=== PATIENT | female | born 1975 | race American Indian/Alaskan Native ===

== ENCOUNTER 2016-06-06 02:16 | Emergency (ER) | payer SELFPAY ==
[2016-06-06] MEDS ORDERED: CATAPRES ONE (02:42)
[2016-06-06] MEDS ORDERED: CATAPRES PO ONE (02:47)
[2016-06-06] MEDS ORDERED: XYLOCAINE 2% INFILTRATI ONE (08:28)
--- NOTE | 2016-06-06 08:57 | Emergency Department Report ---
ED General Adult HPI - General Chief complaint: Skin/Abscess/Foreign Body Stated complaint: FEVER, POSS INFECTION RT THUMB Time Seen by Provider: 06/06/16 08:16 Source: patient Mode of arrival: Ambulatory Limitations: No Limitations - History of Present Illness Initial comments: 40 -year-old female presents to the ED with swelling and pain and throbbing to the right distal thumb. It states that it started this weekend and progressively got more swollen last night. States there is a white discoloration. Denies pus drainage. Denies fever. Severity scale (0 -10): 10 - Related Data Home Medications Medication Instructions Recorded Confirmed Last Taken Amlodipine/Valsartan/Hcthiazid 1 tab PO DAILY 08/05/14 08/05/14 Unknown [Exforge Hct 5-160-12.5 mg Tab] Esomeprazole Magnesium [NexIUM] 40 mg PO DAILY 08/05/14 08/05/14 Unknown Insulin Glargine [Lantus] 52 units SQ QHS 08/05/14 08/05/14 Unknown Insulin Glulisine (Sliding) 0 units SQ TID 08/05/14 08/05/14 Unknown [Apidra (Sliding Scale)] Rosuvastatin (Nf) [Crestor] 5 mg PO QHS 08/05/14 08/05/14 Unknown Previous Rx's Medication Instructions Recorded Last Taken Type Cephalexin [Keflex] 500 mg PO Q6H #28 capsule 08/20/14 Unknown Rx HYDROcodone/APAP 5-325 [[place] 2 each PO Q4H PRN #30 tablet 08/20/14 Unknown Rx 5-325 mg TAB] Sulfamethoxazole/Trimethoprim 1 each PO BID #14 tablet 06/06/16 Unknown Rx [Bactrim DS TAB] traMADol [Ultram 50 MG tab] 50 mg PO Q6HR PRN #14 tablet 06/06/16 Unknown Rx Allergies Allergy/AdvReac Type Severity Reaction Status Date / Time insulin lispro [From Humalog] Allergy Rash Verified 08/09/14 14:17 ED Review of Systems ROS: Stated complaint: FEVER, POSS INFECTION RT THUMB Other details as noted in HPI Constitutional: denies: chills, fever Eyes: denies: eye pain, eye discharge, vision change ENT: denies: ear pain, throat pain Respiratory: denies: cough, shortness of breath, wheezing Cardiovascular: denies: chest pain, palpitations Endocrine: no symptoms reported Gastrointestinal: denies: abdominal pain, nausea, diarrhea Genitourinary: denies: urgency, dysuria, discharge Musculoskeletal: arthralgia. denies: back pain, joint swelling Skin: denies: rash, lesions Neurological: denies: headache, weakness, paresthesias Psychiatric: denies: anxiety, depression Hematological/Lymphatic: denies: easy bleeding, easy bruising ED Past Medical Hx - Past Medical History Previous Medical History?: Yes Hx Hypertension: Yes Hx Congestive Heart Failure: No Hx Diabetes: Yes Hx Deep Vein Thrombosis: (Unk) Hx Sickle Cell Disease: No Hx Seizures: No Hx Psychiatric Treatment: No Hx Asthma: No Hx COPD: No Hx HIV: No - Surgical History Past Surgical History?: Yes Hx Pacemaker: No Hx Internal Defibrillator: No Additional Surgical History: Breast reduction, right upper extremity surgery - Social History Smoking Status: Never Smoker Substance Use Type: None - Medications Home Medications: Home Medications Medication Instructions Recorded Confirmed Last Taken Type Amlodipine/Valsartan/Hcthiazid 1 tab PO DAILY 08/05/14 08/05/14 Unknown History [Exforge Hct 5-160-12.5 mg Tab] Esomeprazole Magnesium [NexIUM] 40 mg PO DAILY 08/05/14 08/05/14 Unknown History Insulin Glargine [Lantus] 52 units SQ QHS 08/05/14 08/05/14 Unknown History Insulin Glulisine (Sliding) 0 units SQ TID 08/05/14 08/05/14 Unknown History [Apidra (Sliding Scale)] Rosuvastatin (Nf) [Crestor] 5 mg PO QHS 08/05/14 08/05/14 Unknown History Cephalexin [Keflex] 500 mg PO Q6H #28 capsule 08/20/14 Unknown Rx HYDROcodone/APAP 5-325 [[place] 2 each PO Q4H PRN #30 tablet 08/20/14 Unknown Rx 5-325 mg TAB] Sulfamethoxazole/Trimethoprim 1 each PO BID #14 tablet 06/06/16 Unknown Rx [Bactrim DS TAB] traMADol [Ultram 50 MG tab] 50 mg PO Q6HR PRN #14 tablet 06/06/16 Unknown Rx ED Physical Exam - General Limitations: No Limitations General appearance: alert, in no apparent distress - Head Head exam: Present: atraumatic, normocephalic - Eye Eye exam: Present: normal appearance - ENT ENT exam: Present: mucous membranes moist - Neck Neck exam: Present: normal inspection - Respiratory Respiratory exam: Present: normal lung sounds bilaterally. Absent: respiratory distress - Cardiovascular Cardiovascular Exam: Present: regular rate, normal rhythm. Absent: systolic murmur, diastolic murmur, rubs, gallop - GI/Abdominal GI/Abdominal exam: Present: soft, normal bowel sounds - Extremities Exam Extremities exam: Present: normal inspection, other (distal right thumb is swollen, erythematous, fluctuant. Full range of motion.) - Back Exam Back exam: Present: normal inspection - Neurological Exam Neurological exam: Present: alert, oriented X3 - Psychiatric Psychiatric exam: Present: normal affect, normal mood - Skin Skin exam: Present: warm, dry, intact, normal color. Absent: rash ED Course Vital Signs 06/06/16 06/06/16 06/06/16 02:23 02:32 02:48 Temperature 98.5 F 98.3 F Pulse Rate 107 H 107 H 107 H Respiratory 22 22 Rate Blood Pressure 198/135 198/135 Blood Pressure 198/135 [Right] O2 Sat by Pulse 100 100 Oximetry - Procedure Description Procedures done: Betadine used to cleanse the area. 2% lidocaine used for digital block of the right thumb. 8 mL used. Right thumb is completely numb. 11 blade used to make 1 cm incision. Copious purulent and bloody drainage was removed. Patient states significant relief. ED Medical Decision Making - Medical Decision Making Patient states feeling much better after incision and drainage. We'll start on Bactrim and tramadol. distress at this time. Critical care attestation.: If time is entered above; I have spent that time in minutes in the direct care of this critically ill patient, excluding procedure time. ED Disposition Clinical Impression: Paronychia of finger Disposition: DISCHARGED TO HOME OR SELFCARE Is pt being admited?: No Does the pt Need Aspirin: No Condition: Good Instructions: Paronychia (ED) Prescriptions: Sulfamethoxazole/Trimethoprim [Bactrim DS TAB] 1 each PO BID #14 tablet traMADol [Ultram 50 MG tab] 50 mg PO Q6HR PRN #14 tablet PRN Reason: Pain Referrals: PRIMARY CARE, [Primary Care Provider] - 3-5 Days Time of Disposition: 08:57
[2016-06-06 09:18] VITALS: BP 180/112
== END 2016-06-06 09:18 | disposition home or self-care (01) ==
LOC: ED 02:16
DX: L03.011 Cellulitis of right finger (principal); I10 Essential (primary) hypertension; E11.9 Type 2 diabetes mellitus without complications
CPT/HCPCS: 99282

== ENCOUNTER 2016-07-29 18:19 | Emergency (ER) | payer OTHER ==
[2016-07-29 21:23] LABS: Anion Gap 21 mmol/L; BUN/Creatinine Ratio 11.25; Basophils % (Auto) 0.5 % (0.0-1.8); Blood Urea Nitrogen 18 mg/dL (7-17); Calcium 9.4 mg/dL (8.4-10.2); Carbon Dioxide 24 mmol/L (22-30); Chloride 95.5 mmol/L (98-107); Eosinophils % (Auto) 0.3 % (0.0-4.3); Glucose 263 mg/dL (65-100); Hematocrit 41.2 % (30.3-42.9); Hemoglobin 13.1 gm/dl (10.1-14.3); Mean Corpuscular HGB Conc 32 % (30-34); Mean Corpuscular Hemoglobin 28 pg (28-32); Mean Corpuscular Volume 88 fl (79-97); Platelet Count 282 K/mm3 (140-440); Potassium 4.3 mmol/L (3.6-5.0); Red Blood Count 4.67 M/mm3 (3.65-5.03); Red Cell Distribution Width 15.8 % (13.2-15.2); Sodium 136 mmol/L (137-145)
--- NOTE | 2016-07-29 22:32 | Cat Scan Report ---
FINAL REPORT EXAM: CT HEAD/BRAIN WO CON HISTORY: blurry vision TECHNIQUE: CT imaging acquired through the head without intravenous contrast. Transaxial reformations are provided. PRIORS: None. FINDINGS: The ventricles, cisterns and sulci are normal. No intraparenchymal or extra-axial mass, hemorrhage, or mass effect. Matthews and white-matter differentiation is normal. Normal spherical shape of the globes. Paranasal sinuses and mastoid air cells are clear. No skull or facial fracture visualized. IMPRESSION: No acute intracranial abnormality. Consider additional imaging including MRI for worsening/persistent symptoms.
[2016-07-30 05:08] VITALS: BP 129/85
--- NOTE | 2016-07-30 05:49 | Emergency Department Report ---
HPI - General Chief Complaint: Allergic Reaction Time Seen by Provider: 07/30/16 05:42 ED Past Medical Hx - Past Medical History Hx Hypertension: Yes Hx Congestive Heart Failure: No Hx Diabetes: Yes Hx Deep Vein Thrombosis: (Unk) Hx Sickle Cell Disease: No Hx Seizures: No Hx Psychiatric Treatment: No Hx Asthma: No Hx COPD: No Hx HIV: No - Surgical History Hx Pacemaker: No Hx Internal Defibrillator: No Additional Surgical History: Breast reduction, right upper extremity surgery - Social History Smoking Status: Unknown if ever smoked - Medications Home Medications: Home Medications Medication Instructions Recorded Confirmed Last Taken Type Amlodipine/Valsartan/Hcthiazid 1 tab PO DAILY 08/05/14 08/05/14 Unknown History [Exforge Hct 5-160-12.5 mg Tab] Esomeprazole Magnesium [NexIUM] 40 mg PO DAILY 08/05/14 08/05/14 Unknown History Insulin Glargine [Lantus] 52 units SQ QHS 08/05/14 08/05/14 Unknown History Insulin Glulisine (Sliding) 0 units SQ TID 08/05/14 08/05/14 Unknown History [Apidra (Sliding Scale)] Rosuvastatin (Nf) [Crestor] 5 mg PO QHS 08/05/14 08/05/14 Unknown History Cephalexin [Keflex] 500 mg PO Q6H #28 capsule 08/20/14 Unknown Rx HYDROcodone/APAP 5-325 [[place] 2 each PO Q4H PRN #30 tablet 08/20/14 Unknown Rx 5-325 mg TAB] Sulfamethoxazole/Trimethoprim 1 each PO BID #14 tablet 06/06/16 Unknown Rx [Bactrim DS TAB] traMADol [Ultram 50 MG tab] 50 mg PO Q6HR PRN #14 tablet 06/06/16 Unknown Rx Famotidine [Pepcid] 20 mg PO BID #10 tablet 07/30/16 Unknown Rx diphenhydrAMINE [Benadryl CAP] 25 mg PO Q6HR #20 capsule 07/30/16 Unknown Rx predniSONE [Deltasone] 50 mg PO QDAY #5 tab 07/30/16 Unknown Rx ED Review of Systems ROS: Stated complaint: ALLERGIC REACTION TO MEDICATION Other details as noted in HPI Physical Exam - Physical Exam Vital Signs: Vital Signs 07/29/16 07/30/16 07/30/16 20:09 02:48 05:07 Temperature 98.4 F 98.2 F 98.6 F Pulse Rate 105 H 91 H 93 H Respiratory 16 18 20 Rate Blood Pressure 159/99 151/100 Blood Pressure 129/85 [Left] O2 Sat by Pulse 100 100 100 Oximetry 07/30/16 05:13 Temperature Pulse Rate Respiratory 20 Rate Blood Pressure Blood Pressure [Left] O2 Sat by Pulse 100 Oximetry ED Course Vital Signs 07/29/16 07/30/16 07/30/16 20:09 02:48 05:07 Temperature 98.4 F 98.2 F 98.6 F Pulse Rate 105 H 91 H 93 H Respiratory 16 18 20 Rate Blood Pressure 159/99 151/100 Blood Pressure 129/85 [Left] O2 Sat by Pulse 100 100 100 Oximetry 07/30/16 05:13 Temperature Pulse Rate Respiratory 20 Rate Blood Pressure Blood Pressure [Left] O2 Sat by Pulse 100 Oximetry ED Medical Decision Making - Lab Data Result diagrams: 07/29/16 20:47 07/29/16 20:47 - EKG Data -: EKG Interpreted by Me ([id number]) EKG shows normal: sinus rhythm, axis (normal), intervals (LPFB, Qtc:469ms), ST- T waves ((-)ST/T changes, no STEMI) - Medical Decision Making Results discussed with the patient. Pt has now been in the ED for approximately 12 hours, patient reports some perioral tingling, with no swelling, tongue swelling, dysarthria, difficulty swallowing, dyspnea, or pooling of secretions. Critical care attestation.: If time is entered above; I have spent that time in minutes in the direct care of this critically ill patient, excluding procedure time. ED Disposition Clinical Impression: Allergic reaction Disposition: DISCHARGED TO HOME OR SELFCARE Is pt being admited?: No Condition: Stable Instructions: Allergies (ED) Additional Instructions: Please stop taking the benicar and follow up with your PMD Prescriptions: diphenhydrAMINE [Benadryl CAP] 25 mg PO Q6HR #20 capsule Famotidine [Pepcid] 20 mg PO BID #10 tablet predniSONE [Deltasone] 50 mg PO QDAY #5 tab Referrals: WILLIAM TADEO MD [Primary Care Provider] - 3-5 Days
== END 2016-07-30 06:02 | disposition home or self-care (01) ==
LOC: ED 18:19
DX: T78.40XA Allergy, unspecified, initial encounter (principal); I10 Essential (primary) hypertension; E11.9 Type 2 diabetes mellitus without complications; Z79.4 Long term (current) use of insulin
CPT/HCPCS: 36415; 70450; 80048; 84484; 85025; 93005; 93010

== ENCOUNTER 2016-09-09 18:09 | Emergency (ER) | payer OTHER ==
[2016-09-09 23:47] VITALS: BP 195/118
[2016-09-10] MEDS ORDERED: MOTRIN PO ONE (01:05)
--- NOTE | 2016-09-10 01:06 | Emergency Department Report ---
ED Extremity Problem HPI - General Chief complaint: Extremity Problem,Nontraumatic Stated complaint: INFECTION IN LEFT THUMB Time Seen by Provider: 09/10/16 01:00 Source: patient Mode of arrival: Ambulatory Limitations: No Limitations - History of Present Illness Initial comments: Patient is a 41-year-old female with history of hypertension, diabetes, hidradenitis suppurativa presenting today because of pain, swelling and drainage of left thumb. Patient states that this started with pain and swelling 2 days ago. Started having spontaneous drainage upon arrival here to the emergency room. No fevers or chills. Had similar symptoms on the other hand in the past requiring procedure in the ER. Severity scale (0 -10): 0 - Related Data Home Medications Medication Instructions Recorded Confirmed Last Taken Amlodipine/Valsartan/Hcthiazid 1 tab PO DAILY 08/05/14 08/05/14 Unknown [Exforge Hct 5-160-12.5 mg Tab] Esomeprazole Magnesium [NexIUM] 40 mg PO DAILY 08/05/14 08/05/14 Unknown Insulin Glargine [Lantus] 52 units SQ QHS 08/05/14 08/05/14 Unknown Insulin Glulisine (Sliding) 0 units SQ TID 08/05/14 08/05/14 Unknown [Apidra (Sliding Scale)] Rosuvastatin (Nf) [Crestor] 5 mg PO QHS 08/05/14 08/05/14 Unknown Previous Rx's Medication Instructions Recorded Last Taken Type Cephalexin [Keflex] 500 mg PO Q6H #28 capsule 08/20/14 Unknown Rx HYDROcodone/APAP 5-325 [[place] 2 each PO Q4H PRN #30 tablet 08/20/14 Unknown Rx 5-325 mg TAB] Sulfamethoxazole/Trimethoprim 1 each PO BID #14 tablet 06/06/16 Unknown Rx [Bactrim DS TAB] traMADol [Ultram 50 MG tab] 50 mg PO Q6HR PRN #14 tablet 06/06/16 Unknown Rx Famotidine [Pepcid] 20 mg PO BID #10 tablet 07/30/16 Unknown Rx diphenhydrAMINE [Benadryl CAP] 25 mg PO Q6HR #20 capsule 07/30/16 Unknown Rx predniSONE [Deltasone] 50 mg PO QDAY #5 tab 07/30/16 Unknown Rx Ibuprofen [Motrin] 600 mg PO Q8H PRN #14 tablet 09/10/16 Unknown Rx Sulfamethoxazole/Trimethoprim 1 each PO BID #14 tablet 09/10/16 Unknown Rx [Bactrim DS TAB] Allergies Allergy/AdvReac Type Severity Reaction Status Date / Time insulin lispro [From Humalog] Allergy Rash Verified 08/09/14 14:17 gabapentin [From Neurontin] AdvReac Unknown Verified 09/09/16 18:33 ED Review of Systems ROS: Stated complaint: INFECTION IN LEFT THUMB Other details as noted in HPI Comment: All other systems reviewed and negative Constitutional: denies: fever ENT: denies: ear pain Respiratory: denies: cough Cardiovascular: denies: chest pain Gastrointestinal: denies: vomiting Genitourinary: denies: urgency Skin: denies: rash Neurological: denies: headache Psychiatric: denies: anxiety ED Past Medical Hx - Past Medical History Previous Medical History?: Yes Hx Hypertension: Yes Hx Congestive Heart Failure: No Hx Diabetes: Yes Hx Deep Vein Thrombosis: (Unk) Hx Sickle Cell Disease: No Hx Seizures: No Hx Psychiatric Treatment: No Hx Asthma: No Hx COPD: No Hx HIV: No - Surgical History Past Surgical History?: Yes Hx Pacemaker: No Hx Internal Defibrillator: No Additional Surgical History: Breast reduction, right upper extremity surgery, Back - Social History Smoking Status: Never Smoker Substance Use Type: None - Medications Home Medications: Home Medications Medication Instructions Recorded Confirmed Last Taken Type Amlodipine/Valsartan/Hcthiazid 1 tab PO DAILY 08/05/14 08/05/14 Unknown History [Exforge Hct 5-160-12.5 mg Tab] Esomeprazole Magnesium [NexIUM] 40 mg PO DAILY 08/05/14 08/05/14 Unknown History Insulin Glargine [Lantus] 52 units SQ QHS 08/05/14 08/05/14 Unknown History Insulin Glulisine (Sliding) 0 units SQ TID 08/05/14 08/05/14 Unknown History [Apidra (Sliding Scale)] Rosuvastatin (Nf) [Crestor] 5 mg PO QHS 08/05/14 08/05/14 Unknown History Cephalexin [Keflex] 500 mg PO Q6H #28 capsule 08/20/14 Unknown Rx HYDROcodone/APAP 5-325 [[place] 2 each PO Q4H PRN #30 tablet 08/20/14 Unknown Rx 5-325 mg TAB] Sulfamethoxazole/Trimethoprim 1 each PO BID #14 tablet 06/06/16 Unknown Rx [Bactrim DS TAB] traMADol [Ultram 50 MG tab] 50 mg PO Q6HR PRN #14 tablet 06/06/16 Unknown Rx Famotidine [Pepcid] 20 mg PO BID #10 tablet 07/30/16 Unknown Rx diphenhydrAMINE [Benadryl CAP] 25 mg PO Q6HR #20 capsule 07/30/16 Unknown Rx predniSONE [Deltasone] 50 mg PO QDAY #5 tab 07/30/16 Unknown Rx Ibuprofen [Motrin] 600 mg PO Q8H PRN #14 tablet 09/10/16 Unknown Rx Sulfamethoxazole/Trimethoprim 1 each PO BID #14 tablet 09/10/16 Unknown Rx [Bactrim DS TAB] ED Physical Exam - General Limitations: No Limitations General appearance: alert, in no apparent distress - Head Head exam: Present: atraumatic - Eye Eye exam: Present: normal appearance - Respiratory Respiratory exam: Present: normal lung sounds bilaterally. Absent: respiratory distress - Cardiovascular Cardiovascular Exam: Present: regular rate, normal rhythm - GI/Abdominal GI/Abdominal exam: Present: soft. Absent: tenderness - Extremities Exam Extremities exam: Present: other (left thumb on the radial aspect just proximal to the nail is a paronychia, no spontaneous drainage on exam there is some drainage dressing, sensation intact distally, capillary refill less than 2 seconds) - Neurological Exam Neurological exam: Present: altered, oriented X3 - Psychiatric Psychiatric exam: Present: normal affect - Skin Skin exam: Present: intact ED Course Vital Signs 09/09/16 09/09/16 18:28 23:46 Temperature 97.9 F Pulse Rate 100 H 91 H Respiratory 18 18 Rate Blood Pressure 202/118 Blood Pressure 195/118 [Left] O2 Sat by Pulse 100 99 Oximetry - I & D Left Distal Dorsal Finger Type of Procedure: Simple Site: left dorsal radial first digit paronychia Blade Size: 11 Progress: initially attempted to guera with 18g without anesthesia, unsuccessful, patient unable to tolerate. 8 mL of 2% lidocaine without epi was used for a digital block with good anesthetic results. A scalpel was used to make a small incision and moderate amount of pus and blood was removed from the site. ED Medical Decision Making - Medical Decision Making Paronychia Offered digital block versus no anesthesia with just a single lanced with an 18- gauge needle, patient prefers to do the 18-gauge needle. Motrin also ordered for the pain. I&D abx due to diabetes Critical care attestation.: If time is entered above; I have spent that time in minutes in the direct care of this critically ill patient, excluding procedure time. ED Disposition Clinical Impression: Paronychia of finger of left hand Disposition: DISCHARGED TO HOME OR SELFCARE Is pt being admited?: No Does the pt Need Aspirin: No Condition: Stable Instructions: Paronychia (ED) Additional Instructions: Please follow up with the primary care physician in the next 2-3 days. Return to the ER if your symptoms worsen or you develop new symptoms. Soak thumb in warm water to keep incision site open. Prescriptions: Ibuprofen [Motrin] 600 mg PO Q8H PRN #14 tablet PRN Reason: Pain Sulfamethoxazole/Trimethoprim [Bactrim DS TAB] 1 each PO BID #14 tablet Referrals: PRIMARY CARE, [Primary Care Provider] - 3-5 Days Time of Disposition: 02:30
[2016-09-10] MEDS ORDERED: XYLOCAINE 2% INFILTRATI ONE (01:37)
== END 2016-09-10 02:59 | disposition home or self-care (01) ==
LOC: ED 18:09
DX: L03.012 Cellulitis of left finger (principal); I10 Essential (primary) hypertension; E11.9 Type 2 diabetes mellitus without complications; Z79.4 Long term (current) use of insulin; Z88.8 Allergy status to other drugs, medicaments and biological substances

== ENCOUNTER 2016-11-28 09:19 | Emergency (ER) | payer OTHER ==
[2016-11-28 09:35] VITALS: BP 183/109
--- NOTE | 2016-11-28 10:02 | Emergency Department Report ---
ED General Adult HPI - General Chief complaint: Dental/Oral Stated complaint: RT EAR PAIN/DIZZY Time Seen by Provider: 11/28/16 09:43 Source: patient Mode of arrival: Ambulatory Limitations: No Limitations - History of Present Illness Initial comments: 41-year-old female presents to the ED complaining about right upper dental pain in the maxillary region, right ear pain, sore throat for about 2 days. States that there is no dental swelling or pus drainage. Denies injury. Denies fever , cough, chest pain, shortness of breath. -: Gradual, days(s) (2) Quality: aching Consistency: constant Improves with: none Worsens with: none Associated Symptoms: denies other symptoms - Related Data Home Medications Medication Instructions Recorded Confirmed Last Taken Amlodipine/Valsartan/Hcthiazid 1 tab PO DAILY 08/05/14 08/05/14 Unknown [Exforge Hct 5-160-12.5 mg Tab] Esomeprazole Magnesium [NexIUM] 40 mg PO DAILY 08/05/14 08/05/14 Unknown Insulin Glargine [Lantus] 52 units SQ QHS 08/05/14 08/05/14 Unknown Insulin Glulisine (Sliding) 0 units SQ TID 08/05/14 08/05/14 Unknown [Apidra (Sliding Scale)] Rosuvastatin (Nf) [Crestor] 5 mg PO QHS 08/05/14 08/05/14 Unknown Previous Rx's Medication Instructions Recorded Last Taken Type Cephalexin [Keflex] 500 mg PO Q6H #28 capsule 08/20/14 Unknown Rx HYDROcodone/APAP 5-325 [[place] 2 each PO Q4H PRN #30 tablet 08/20/14 Unknown Rx 5-325 mg TAB] Sulfamethoxazole/Trimethoprim 1 each PO BID #14 tablet 06/06/16 Unknown Rx [Bactrim DS TAB] traMADol [Ultram 50 MG tab] 50 mg PO Q6HR PRN #14 tablet 06/06/16 Unknown Rx Famotidine [Pepcid] 20 mg PO BID #10 tablet 07/30/16 Unknown Rx diphenhydrAMINE [Benadryl CAP] 25 mg PO Q6HR #20 capsule 07/30/16 Unknown Rx predniSONE [Deltasone] 50 mg PO QDAY #5 tab 07/30/16 Unknown Rx Ibuprofen [Motrin] 600 mg PO Q8H PRN #14 tablet 09/10/16 Unknown Rx Sulfamethoxazole/Trimethoprim 1 each PO BID #14 tablet 09/10/16 Unknown Rx [Bactrim DS TAB] Acetaminophen/Codeine [Tylenol 1 tab PO Q6H PRN #14 tab 11/28/16 Unknown Rx /Codeine # 3 tab] Penicillin Vk [Veetids TAB] 500 mg PO QID #56 tablet 11/28/16 Unknown Rx Allergies Allergy/AdvReac Type Severity Reaction Status Date / Time insulin lispro [From Humalog] Allergy Rash Verified 08/09/14 14:17 gabapentin [From Neurontin] AdvReac Unknown Verified 09/09/16 18:33 ED Review of Systems ROS: Stated complaint: RT EAR PAIN/DIZZY Other details as noted in HPI Constitutional: denies: chills, fever Eyes: denies: eye pain, eye discharge, vision change ENT: ear pain, throat pain, dental pain Respiratory: denies: cough, shortness of breath, wheezing Cardiovascular: denies: chest pain, palpitations Endocrine: no symptoms reported Gastrointestinal: denies: abdominal pain, nausea, diarrhea Genitourinary: denies: urgency, dysuria, discharge Musculoskeletal: denies: back pain, joint swelling, arthralgia Skin: denies: rash, lesions Neurological: denies: headache, weakness, paresthesias Psychiatric: denies: anxiety, depression Hematological/Lymphatic: denies: easy bleeding, easy bruising ED Past Medical Hx - Past Medical History Previous Medical History?: Yes Hx Hypertension: Yes Hx Congestive Heart Failure: No Hx Diabetes: Yes Hx Deep Vein Thrombosis: (Unk) Hx Sickle Cell Disease: No Hx Seizures: No Hx Psychiatric Treatment: No Hx Asthma: No Hx COPD: No Hx HIV: No - Surgical History Hx Pacemaker: No Hx Internal Defibrillator: No Additional Surgical History: Breast reduction, right upper extremity surgery, Back - Social History Smoking Status: Never Smoker Substance Use Type: None - Medications Home Medications: Home Medications Medication Instructions Recorded Confirmed Last Taken Type Amlodipine/Valsartan/Hcthiazid 1 tab PO DAILY 08/05/14 08/05/14 Unknown History [Exforge Hct 5-160-12.5 mg Tab] Esomeprazole Magnesium [NexIUM] 40 mg PO DAILY 08/05/14 08/05/14 Unknown History Insulin Glargine [Lantus] 52 units SQ QHS 08/05/14 08/05/14 Unknown History Insulin Glulisine (Sliding) 0 units SQ TID 08/05/14 08/05/14 Unknown History [Apidra (Sliding Scale)] Rosuvastatin (Nf) [Crestor] 5 mg PO QHS 08/05/14 08/05/14 Unknown History Cephalexin [Keflex] 500 mg PO Q6H #28 capsule 08/20/14 Unknown Rx HYDROcodone/APAP 5-325 [[place] 2 each PO Q4H PRN #30 tablet 08/20/14 Unknown Rx 5-325 mg TAB] Sulfamethoxazole/Trimethoprim 1 each PO BID #14 tablet 06/06/16 Unknown Rx [Bactrim DS TAB] traMADol [Ultram 50 MG tab] 50 mg PO Q6HR PRN #14 tablet 06/06/16 Unknown Rx Famotidine [Pepcid] 20 mg PO BID #10 tablet 07/30/16 Unknown Rx diphenhydrAMINE [Benadryl CAP] 25 mg PO Q6HR #20 capsule 07/30/16 Unknown Rx predniSONE [Deltasone] 50 mg PO QDAY #5 tab 07/30/16 Unknown Rx Ibuprofen [Motrin] 600 mg PO Q8H PRN #14 tablet 09/10/16 Unknown Rx Sulfamethoxazole/Trimethoprim 1 each PO BID #14 tablet 09/10/16 Unknown Rx [Bactrim DS TAB] Acetaminophen/Codeine [Tylenol 1 tab PO Q6H PRN #14 tab 11/28/16 Unknown Rx /Codeine # 3 tab] Penicillin Vk [Veetids TAB] 500 mg PO QID #56 tablet 11/28/16 Unknown Rx ED Physical Exam - General Limitations: No Limitations General appearance: alert, in no apparent distress - Head Head exam: Present: atraumatic, normocephalic - Eye Eye exam: Present: normal appearance, EOMI Pupils: Present: normal accommodation - ENT ENT exam: Present: normal orophraynx, mucous membranes moist, TM's normal bilaterally, normal external ear exam - Expanded ENT Exam Expanded Teeth exam: Present: dental caries, gingival enlargement Throat exam: Negative: tonsillar erythema, tonsillomegaly, tonsillar exudate, R peritonsillar mass, L peritonsillar mass - Neck Neck exam: Present: normal inspection. Absent: tenderness - Respiratory Respiratory exam: Present: normal lung sounds bilaterally. Absent: respiratory distress - Cardiovascular Cardiovascular Exam: Present: regular rate, normal rhythm. Absent: systolic murmur, diastolic murmur, rubs, gallop - GI/Abdominal GI/Abdominal exam: Present: soft, normal bowel sounds - Extremities Exam Extremities exam: Present: normal inspection - Back Exam Back exam: Present: normal inspection - Neurological Exam Neurological exam: Present: alert, oriented X3 - Psychiatric Psychiatric exam: Present: normal affect, normal mood - Skin Skin exam: Present: warm, dry, intact, normal color. Absent: rash ED Course Vital Signs 11/28/16 09:30 Temperature 98.8 F Pulse Rate 98 H Respiratory 20 Rate Blood Pressure 183/109 O2 Sat by Pulse 100 Oximetry ED Medical Decision Making - Medical Decision Making Patient is resting comfortably at this time. We'll start penicillin for dental infection. Critical care attestation.: If time is entered above; I have spent that time in minutes in the direct care of this critically ill patient, excluding procedure time. ED Disposition Clinical Impression: Infected dental caries, Acute pharyngitis Disposition: TO HOME OR SELFCARE Is pt being admited?: No Does the pt Need Aspirin: No Condition: Good Instructions: Dental Caries (ED) Prescriptions: Acetaminophen/Codeine [Tylenol /Codeine # 3 tab] 1 tab PO Q6H PRN #14 tab PRN Reason: Pain Penicillin Vk [Veetids TAB] 500 mg PO QID #56 tablet Referrals: PRIMARY CARE, [Primary Care Provider] - 3-5 Days [facility] [Outside] - 3-5 Days Forms: Work/School Release Form(ED) Time of Disposition: 10:01
== END 2016-11-28 10:17 | disposition home or self-care (01) ==
LOC: ED 09:19
DX: K04.7 Periapical abscess without sinus (principal); J02.9 Acute pharyngitis, unspecified; I10 Essential (primary) hypertension
CPT/HCPCS: 99281

== ENCOUNTER 2021-05-18 22:00 | Emergency (ER) | payer SELFPAY ==
[2021-05-19] MEDS ORDERED: ACETAMINOPHEN 325 MG TAB PO ONE (00:10)
[2021-05-19] MEDS ORDERED: LIDOCAINE-MPF (1%) 10 MG/1 ML VIAL 5 ML INFILTRATI ONE (00:18)
--- NOTE | 2021-05-19 00:22 | Emergency Department Report ---
- General Chief complaint: Skin/Abscess/Foreign Body Stated complaint: KEEP FALLEN Time Seen by Provider: 05/18/21 23:37 Source: patient Mode of arrival: Ambulatory Limitations: No Limitations - History of Present Illness Initial comments: patient reports she keeps falling and this has been going on for a week. she also states she has abscess under her left arm MD complaint: abscess/boil -: Gradual Location: LUE Severity: moderate Severity scale (0 -10): 3 Quality: aching Consistency: constant Treatments Prior to Arrival: none - Related Data Home Medications Medication Instructions Recorded Confirmed Last Taken Amlodipine/Valsartan/Hcthiazid 1 tab PO DAILY 08/05/14 08/05/14 Unknown [Exforge Hct 5-160-12.5 mg Tab] Esomeprazole Magnesium [NexIUM] 40 mg PO DAILY 08/05/14 08/05/14 Unknown Insulin Glargine [Lantus] 52 units SQ QHS 08/05/14 08/05/14 Unknown Insulin Glulisine (Sliding) 0 units SQ TID 08/05/14 08/05/14 Unknown [Apidra (Sliding Scale)] Rosuvastatin (Nf) [Crestor] 5 mg PO QHS 08/05/14 08/05/14 Unknown Previous Rx's Medication Instructions Recorded Last Taken Type HYDROcodone/APAP 5-325 [[place] 2 each PO Q4H PRN #30 tablet 08/20/14 Unknown Rx 5-325 mg TAB] cephALEXin [Keflex] 500 mg PO Q6H #28 capsule 08/20/14 Unknown Rx Sulfamethoxazole/Trimethoprim 1 each PO BID #14 tablet 06/06/16 Unknown Rx [Bactrim DS TAB] traMADoL [Ultram 50 MG tab] 50 mg PO Q6HR PRN #14 tablet 06/06/16 Unknown Rx Famotidine [Pepcid] 20 mg PO BID #10 tablet 07/30/16 Unknown Rx diphenhydrAMINE [Benadryl CAP] 25 mg PO Q6HR #20 capsule 07/30/16 Unknown Rx predniSONE [Deltasone] 50 mg PO QDAY #5 tab 07/30/16 Unknown Rx Ibuprofen [Motrin] 600 mg PO Q8H PRN #14 tablet 09/10/16 Unknown Rx Sulfamethoxazole/Trimethoprim 1 each PO BID #14 tablet 09/10/16 Unknown Rx [Bactrim DS TAB] Acetaminophen/Codeine [Tylenol 1 tab PO Q6H PRN #14 tab 11/28/16 Unknown Rx /Codeine # 3 tab] Penicillin Vk [Veetids TAB] 500 mg PO QID #56 tablet 11/28/16 Unknown Rx Allergies Allergy/AdvReac Type Severity Reaction Status Date / Time insulin lispro [From Humalog] Allergy Rash Verified 08/09/14 14:17 gabapentin [From Neurontin] AdvReac Unknown Verified 09/09/16 18:33 Abscess Boil HPI - HPI Chief Complaint: Skin/Abscess/Foreign Body Stated Complaint: KEEP FALLEN Time Seen by Provider: 05/18/21 23:37 Duration: 5 Days Location: Upper Extremity Severity: Moderate History: No Fever, No Pain, No Purulent Drainage, No Numbness, No Foreign Body, No Previous History, No Insect Bite Home Medications: Home Medications Medication Instructions Recorded Confirmed Last Taken Amlodipine/Valsartan/Hcthiazid 1 tab PO DAILY 08/05/14 08/05/14 Unknown [Exforge Hct 5-160-12.5 mg Tab] Esomeprazole Magnesium [NexIUM] 40 mg PO DAILY 08/05/14 08/05/14 Unknown Insulin Glargine [Lantus] 52 units SQ QHS 08/05/14 08/05/14 Unknown Insulin Glulisine (Sliding) 0 units SQ TID 08/05/14 08/05/14 Unknown [Apidra (Sliding Scale)] Rosuvastatin (Nf) [Crestor] 5 mg PO QHS 08/05/14 08/05/14 Unknown Previous Rx's Medication Instructions Recorded Last Taken Type HYDROcodone/APAP 5-325 [[place] 2 each PO Q4H PRN #30 tablet 08/20/14 Unknown Rx 5-325 mg TAB] cephALEXin [Keflex] 500 mg PO Q6H #28 capsule 08/20/14 Unknown Rx Sulfamethoxazole/Trimethoprim 1 each PO BID #14 tablet 06/06/16 Unknown Rx [Bactrim DS TAB] traMADoL [Ultram 50 MG tab] 50 mg PO Q6HR PRN #14 tablet 06/06/16 Unknown Rx Famotidine [Pepcid] 20 mg PO BID #10 tablet 07/30/16 Unknown Rx diphenhydrAMINE [Benadryl CAP] 25 mg PO Q6HR #20 capsule 07/30/16 Unknown Rx predniSONE [Deltasone] 50 mg PO QDAY #5 tab 07/30/16 Unknown Rx Ibuprofen [Motrin] 600 mg PO Q8H PRN #14 tablet 09/10/16 Unknown Rx Sulfamethoxazole/Trimethoprim 1 each PO BID #14 tablet 09/10/16 Unknown Rx [Bactrim DS TAB] Acetaminophen/Codeine [Tylenol 1 tab PO Q6H PRN #14 tab 11/28/16 Unknown Rx /Codeine # 3 tab] Penicillin Vk [Veetids TAB] 500 mg PO QID #56 tablet 11/28/16 Unknown Rx Allergies/Adverse Reactions: Allergies Allergy/AdvReac Type Severity Reaction Status Date / Time insulin lispro [From Humalog] Allergy Rash Verified 08/09/14 14:17 gabapentin [From Neurontin] AdvReac Unknown Verified 09/09/16 18:33 ED Review of Systems ROS: Stated complaint: KEEP FALLEN Other details as noted in HPI Constitutional: denies: chills, fever Eyes: denies: eye pain, eye discharge, vision change ENT: denies: ear pain, throat pain Respiratory: denies: cough, shortness of breath, wheezing Cardiovascular: denies: chest pain, palpitations Endocrine: no symptoms reported Gastrointestinal: denies: abdominal pain, nausea, diarrhea Genitourinary: denies: urgency, dysuria, discharge Musculoskeletal: denies: back pain, joint swelling, arthralgia Skin: denies: rash, lesions Neurological: denies: headache, weakness, paresthesias Psychiatric: denies: anxiety, depression Hematological/Lymphatic: denies: easy bleeding, easy bruising ED Past Medical Hx - Past Medical History Previous Medical History?: Yes Hx Hypertension: Yes Hx Congestive Heart Failure: No Hx Diabetes: Yes Hx Deep Vein Thrombosis: (Unk) Hx Sickle Cell Disease: No Hx Seizures: No Hx Psychiatric Treatment: No Hx Asthma: No Hx COPD: No Hx HIV: No - Surgical History Past Surgical History?: Yes Hx Pacemaker: No Hx Internal Defibrillator: No Additional Surgical History: Breast reduction, right upper extremity surgery, Back - Social History Smoking Status: Never Smoker Substance Use Type: None - Medications Home Medications: Home Medications Medication Instructions Recorded Confirmed Last Taken Type Amlodipine/Valsartan/Hcthiazid 1 tab PO DAILY 08/05/14 08/05/14 Unknown History [Exforge Hct 5-160-12.5 mg Tab] Esomeprazole Magnesium [NexIUM] 40 mg PO DAILY 08/05/14 08/05/14 Unknown History Insulin Glargine [Lantus] 52 units SQ QHS 08/05/14 08/05/14 Unknown History Insulin Glulisine (Sliding) 0 units SQ TID 08/05/14 08/05/14 Unknown History [Apidra (Sliding Scale)] Rosuvastatin (Nf) [Crestor] 5 mg PO QHS 08/05/14 08/05/14 Unknown History HYDROcodone/APAP 5-325 [[place] 2 each PO Q4H PRN #30 tablet 08/20/14 Unknown Rx 5-325 mg TAB] cephALEXin [Keflex] 500 mg PO Q6H #28 capsule 08/20/14 Unknown Rx Sulfamethoxazole/Trimethoprim 1 each PO BID #14 tablet 06/06/16 Unknown Rx [Bactrim DS TAB] traMADoL [Ultram 50 MG tab] 50 mg PO Q6HR PRN #14 tablet 06/06/16 Unknown Rx Famotidine [Pepcid] 20 mg PO BID #10 tablet 07/30/16 Unknown Rx diphenhydrAMINE [Benadryl CAP] 25 mg PO Q6HR #20 capsule 07/30/16 Unknown Rx predniSONE [Deltasone] 50 mg PO QDAY #5 tab 07/30/16 Unknown Rx Ibuprofen [Motrin] 600 mg PO Q8H PRN #14 tablet 09/10/16 Unknown Rx Sulfamethoxazole/Trimethoprim 1 each PO BID #14 tablet 09/10/16 Unknown Rx [Bactrim DS TAB] Acetaminophen/Codeine [Tylenol 1 tab PO Q6H PRN #14 tab 11/28/16 Unknown Rx /Codeine # 3 tab] Penicillin Vk [Veetids TAB] 500 mg PO QID #56 tablet 11/28/16 Unknown Rx ED Physical Exam - General Limitations: No Limitations General appearance: alert, in no apparent distress, obese - Head Head exam: Present: atraumatic, normocephalic - Eye Eye exam: Present: normal appearance - ENT ENT exam: Present: mucous membranes moist - Neck Neck exam: Present: normal inspection - Respiratory Respiratory exam: Present: normal lung sounds bilaterally. Absent: respiratory distress - Cardiovascular Cardiovascular Exam: Present: regular rate, normal rhythm. Absent: systolic murmur, diastolic murmur, rubs, gallop - GI/Abdominal GI/Abdominal exam: Present: soft, normal bowel sounds - Extremities Exam Extremities exam: Present: normal inspection - Back Exam Back exam: Present: normal inspection - Neurological Exam Neurological exam: Present: alert, oriented X3 - Psychiatric Psychiatric exam: Present: normal affect, normal mood - Skin Skin exam: Present: warm, dry, intact, normal color. Absent: rash - Expanded Skin Exam Expanded Type of lesion: Present: abscess Distribution of rash: LUE Description of rash: Present: tenderness, swelling ED Course Vital Signs 05/18/21 23:17 Temperature 98.2 F Pulse Rate 104 H Respiratory 18 Rate Blood Pressure 178/102 O2 Sat by Pulse 100 Oximetry - Reevaluation(s) Reevaluation #1: 05/19/21 00:20 no fever , vss, no confluent abscess, abx given Critical care attestation.: If time is entered above; I have spent that time in minutes in the direct care of this critically ill patient, excluding procedure time. ED Disposition Clinical Impression: Left axillary hidradenitis Disposition: 01 HOME / SELF CARE / HOMELESS Is pt being admited?: No Does the pt Need Aspirin: No Condition: Stable Instructions: Hidradenitis Suppurativa
[2021-05-19] MEDS ORDERED: ACETAMINOPHEN 325 MG TAB ONE (01:38)
[2021-05-19 04:56] VITALS: BP 197/108
== END 2021-05-19 00:42 | disposition home or self-care (01) ==
LOC: ED 22:00
DX: L73.2 Hidradenitis suppurativa (principal); I10 Essential (primary) hypertension; E11.9 Type 2 diabetes mellitus without complications; Z88.8 Allergy status to other drugs, medicaments and biological substances; Z79.899 Other long term (current) drug therapy; Z79.4 Long term (current) use of insulin
CPT/HCPCS: 82962; 96372; 99282; J0696; J3490